=== PATIENT | female | born 1995 | race Caucasian/White ===

== ENCOUNTER 2017-11-07 16:08 | Emergency (ER) | payer MEDICAID, BC ==
[2017-11-07 16:36] LABS: URINE APPEARANCE CLEAR; URINE BILIRUBIN NEGATIVE (NEGATIVE); URINE BLOOD TRACE-I (NEGATIVE); URINE COLOR YELLOW; URINE GLUCOSE (UA) NEGATIVE (NEGATIVE); URINE KETONE NEGATIVE (NEGATIVE); URINE LEUKOCYTE ESTERASE NEGATIVE (NEGATIVE); URINE NITRITE NEGATIVE (NEGATIVE); URINE PROTEIN NEGATIVE (NEGATIVE); URINE UROBILINOGEN 0.2 E.U./dL (0.20 - 1.00)
[2017-11-07 16:37] LABS: HCG,QUALITATIVE URINE NEGATIVE (NEGATIVE)
[2017-11-07 16:43] LABS: URINE BACTERIA NONE SEEN; URINE EPITHELIAL CELLS NONE SEEN (FEW); URINE RBC 0 - 2 (NONE SEEN); URINE WBC NONE SEEN (0-2/hpf)
--- NOTE | 2017-11-07 16:45 | Emergency Department Record ---
History of Present Illness - General Chief Complaint: Abdominal Pain Stated Complaint: blood in stool Time Seen by Provider: 11/07/17 16:33 Source: Patient Mode of Arrival: Ambulatory Limitations: No limitations - History of Present Illness Initial Comments: The patient is here due to noticing blood on the TP when wiping off and on for about 2 weeks. Today she noticed blood dripping in the bowl mildly. There was no reported rectal pain, fever, AP, nausea or vomiting. MD Complaint: Other Onset/Timin -: Days(s) Radiation: None Migration to: No migration Improves With: Nothing Worsens With: Nothing Associated Symptoms: Other - Related Data Allergies Allergy/AdvReac Type Severity Reaction Status Date / Time No Known Drug Allergies Allergy Verified 11/07/17 16:28 Travel Screening - Travel/Exposure Within Last 30 Days Have you traveled within the last 30 days?: No - Travel/Exposure Within Last Year Have you traveled outside the [place] in the last year?: No - Additonal Travel Details Have you been exposed to anyone with a communicable illness?: No - Travel Symptoms Symptom Screening: None Review of Systems Constitutional: Denies: Chills, Fever Eyes: Denies: Eye discharge ENT: Denies: Congestion Respiratory: Denies: Cough, Dyspnea Past Medical History - SOCIAL HISTORY Smoking Status: Never smoker Alcohol Use: Occasional Drug Use: None - RESPIRATORY Hx Respiratory Disorders: Yes Hx Asthma: Yes - CARDIOVASCULAR Hx Cardio Disorders: No - NEURO Hx Neuro Disorders: No - GI Hx GI Disorders: No - Hx Genitourinary Disorders: Yes Hx UTI: Yes - ENDOCRINE Hx Endocrine Disorders: No - MUSCULOSKELETAL Hx Musculoskeletal Disorders: No - PSYCH Hx Psych Problems: Yes Hx Anxiety: Yes Hx Depression: Yes - HEMATOLOGY/ONCOLOGY Hx Hematology/Oncology Disorders: No Family Medical History Any Significant Family History?: No Hx Heart Disease: Mother Hx HTN: Father, Mother, Grandparents Physical Exam - General General Appearance: Alert, Oriented x3, Cooperative, No acute distress - Head Head exam: Atraumatic, Normocephalic, Normal inspection - Eye Eye exam: Normal appearance, PERRL - GI/Abdominal GI/Abdominal exam: Soft, Normal bowel sounds. negative: Tenderness - Rectal Rectal exam: Other (There is clearly a rectal fissure at the 7:00 position that presently is not bleeding.). negative: Hemorrhoids, Normal inspection - Extremities Extremities exam: Normal inspection, Full ROM, Normal capillary refill. negative: Tenderness - Back Back exam: Reports: Normal inspection - Neurological Neurological exam: Alert, Normal gait. negative: Abnormal gait, Motor sensory deficit - Psychiatric Psychiatric exam: negative: Anxious Course Vital Signs 11/07/17 16:22 Temperature 98.6 F Pulse Rate 89 Respiratory 16 Rate Blood Pressure 132/86 Pulse Ox 100 - Reevaluation(s) Reevaluation #1: I did discuss the issues with the patient and mother. The patient is to use some wipes or tucks pads during the day along with some Hemorrhoidal cream. She is to see her PCP if not better later this week. 11/07/17 16:49 Medical Decision Making - Lab Data Lab Results 11/07/17 Range/Units 16:00 Urine Color Yellow Urine Appearance Clear Urine pH 6.0 (5.0-8.0) Ur Specific [place] 1.015 (1.002-1.030) Urine Protein Negative (NEGATIVE) Urine Glucose (UA) Negative (NEGATIVE) Urine Ketones Negative (NEGATIVE) Urine Blood Trace-i (NEGATIVE) Urine Nitrite Negative (NEGATIVE) Urine Bilirubin Negative (NEGATIVE) Urine Urobilinogen 0.2 (0.20 - 1.00) E.U./dL Ur Leukocyte Esterase Negative (NEGATIVE) Urine RBC 0 - 2 (NONE SEEN) Urine WBC None seen (0-2/hpf) Ur Epithelial Cells None seen (FEW) Urine Bacteria None seen Urine HCG, Qual Negative (NEGATIVE) Disposition Disposition: Discharge Clinical Impression: Rectal fissure Disposition: Home, Self-Care Condition: (2) Stable Instructions: Rectal Bleeding (ED) Additional Instructions: Please use the wipes or tucks pads as needed and also use some OTC hemorrhoidal cream for a few days twice a day. Please see your family doctor if not better in 2-3 days. Return to the ER for any worsening symptoms. Forms: Patient Portal Access Time of Disposition: 16:44 Quality - Quality Measures Quality Measures: N/A - Blood Pressure Screening View Details: Yes Does Patient Have Any of the Following: No Blood Pressure Classification: Hypertensive Reading Systolic Measurement: 129 Diastolic Measurement: 96 Screening for High Blood Pressure: < First Hypertensive BP, F/U Documented > [ G8950] First Hypertensive Follow-up Interventions: Referral to alternative/primary care provider.
== END 2017-11-07 16:55 | disposition home or self-care (01) ==
LOC: ER 16:08
DX: K62.5 Hemorrhage of anus and rectum (principal)
CPT/HCPCS: 81001; 81025; 99282

== ENCOUNTER 2019-02-09 15:12 | Emergency (ER) | payer OTHER, BC ==
[2019-02-09] MEDS ORDERED: DEXAMETHASONE SOD PHOSPHATE 10MG/ML VIAL PO ONE (16:08)
--- NOTE | 2019-02-09 16:13 | Emergency Department Record ---
History of Present Illness - General Chief complaint: ENT Stated complaint: ENT Time Seen by Provider: 02/09/19 16:03 Source: Patient, Family Mode of Arrival: Ambulatory Limitations: No limitations - History of Present Illness Initial comments: 23 yo female presents with left ear pain and right throat pain. She has noticed swollen glands on the right side. She has some congestion. No fever. No nausea, vomiting or diarrhea. No rash. It does hurt to swallow. No voice changes. No pain or swelling over the thyroid area. Onset/Timin -: Days(s) (2) Location: L ear, Throat Quality: Aching Consistency: Constant Improves with: None Worsens with: Swallowing Context-Epistaxis: Other Context- Ear: Recent illness Associated Symptoms: Cough - Related Data Home Medications Medication Instructions Recorded Confirmed Last Taken Loratadine 10 mg PO DAILY 02/09/19 02/09/19 Unknown Previous Rx's Medication Instructions Recorded Azithromycin [Zithromax] 250 mg PO DAILY #6 tab 02/09/19 Allergies Allergy/AdvReac Type Severity Reaction Status Date / Time No Known Drug Allergies Allergy Verified 02/09/19 15:54 Travel Screening - Travel/Exposure Within Last 30 Days Have you traveled within the last 30 days?: No Review of Systems Constitutional: Denies: Chills, Fever, Malaise, Weakness Eyes: Denies: Eye discharge ENT: Reports: Congestion, Ear pain, Throat pain Respiratory: Denies: Cough, Dyspnea Cardiovascular: Denies: Chest pain, Palpitations, Syncope Endocrine: Denies: Fatigue, Polydipsia, Polyuria Gastrointestinal: Denies: Abdominal pain, Diarrhea, Nausea, Vomiting Genitourinary: Denies: Dysuria, Urgency Musculoskeletal: Denies: Arthralgia, Back pain, Myalgia Skin: Denies: Bruising, Change in color, Rash Neurological: Denies: Headache Psychiatric: Denies: Anxiety Hematological/Lymphatic: Denies: Easy bleeding, Easy bruising Past Medical History - SOCIAL HISTORY Smoking Status: Never smoker Alcohol Use: None Drug Use: None - RESPIRATORY Hx Respiratory Disorders: Yes Hx Asthma: Yes - CARDIOVASCULAR Hx Cardio Disorders: No - NEURO Hx Neuro Disorders: No - GI Hx GI Disorders: No - Hx Genitourinary Disorders: Yes Hx UTI: Yes - ENDOCRINE Hx Endocrine Disorders: No - MUSCULOSKELETAL Hx Musculoskeletal Disorders: No - PSYCH Hx Psych Problems: Yes Hx Anxiety: Yes Hx Depression: Yes - HEMATOLOGY/ONCOLOGY Hx Hematology/Oncology Disorders: No Family Medical History Any Significant Family History?: Yes Hx Heart Disease: Mother Hx HTN: Father, Mother, Grandparents Physical Exam - General General Appearance: Alert, Oriented x3, Cooperative, No acute distress Limitations: No limitations - Head Head exam: Atraumatic, Normal inspection - Eye Eye exam: Normal appearance. negative: Conjunctival injection - ENT ENT exam: Normal exam, Mucous membranes moist. negative: Normal orophraynx, TM's normal bilaterally (Left TM mild erythema, right is normal) Ear exam: Normal external inspection Nasal Exam: Normal inspection Mouth exam: Normal external inspection Teeth exam: Normal inspection Throat exam: Tonsillar erythema, Tonsillomegaly. negative: Tonsillar exudate, R peritonsillar mass, L peritonsillar mass - Neck Neck exam: Full ROM, Lymphadenopathy (Right upper cervical), Tenderness (right upper cervical). negative: Thyromegaly (soft non tender) - Respiratory Respiratory exam: Normal lung sounds bilaterally. negative: Rhonchi, Stridor, Wheezes - Cardiovascular Cardiovascular Exam: Regular rate, Normal rhythm, Normal heart sounds - Rectal Rectal exam: Deferred - exam: Deferred - Extremities Extremities exam: Normal inspection - Neurological Neurological exam: Alert, Oriented X3 - Psychiatric Psychiatric exam: Normal affect, Normal mood - Skin Skin exam: Dry, Intact, Normal color, Warm Course Vital Signs 02/09/19 15:50 Temperature 97.9 F Pulse Rate [ 104 H Pulse Ox Probe] Respiratory 18 Rate Blood Pressure 137/81 [Left Arm] Pulse Ox 100 Disposition Disposition: Discharge Clinical Impression: Acute bacterial tonsillitis Disposition: Home, Self-Care Condition: (1) Good Instructions: Tonsillitis (ED) Additional Instructions: Review this ER visit and the tests performed with your family doctor Call your doctor for the next available follow up appointment Return to the ER for a recheck immediately if worse, any new concerns or questions Take the prescriptions provided as directed Prescriptions: Azithromycin [Zithromax] 250 mg PO DAILY #6 tab Forms: Patient Portal Access Time of Disposition: 16:10 Quality - Quality Measures Quality Measures: N/A - Blood Pressure Screening Does Patient Have Any of the Following: No Blood Pressure Classification: Pre-Hypertensive BP Reading Systolic Measurement: 137 Diastolic Measurement: 81 Screening for High Blood Pressure: < Pre-Hypertensive BP, F/U Documented > [G8950] Pre-Hypertensive Follow-up Interventions: Referral to alternative/primary care provider.
== END 2019-02-09 17:21 | disposition home or self-care (01) ==
LOC: ER 15:12
DX: J03.80 Acute tonsillitis due to other specified organisms (principal); B96.89 Other specified bacterial agents as the cause of diseases classified elsewhere
CPT/HCPCS: 99283 ×2; J1100